=== PATIENT | female | born 1940 | race Caucasian/White ===

== ENCOUNTER 2021-03-26 13:57 | Inpatient (IN) | payer MEDICAID ==
[~2021-03-26] VITALS: Ht 160 cm; Wt 87.2 kg
[2021-03-26 15:29] LABS: BASOPHILS % 0.8 % (0.0-2.0); EOSINOPHILS % 0.5 % (0.0-5.0); HEMATOCRIT. 36.6 % (36.0-48.0); HEMOGLOBIN. 11.8 g/dL (12.0-16.0); LYMPHOCYTES % 22.2 % (20.0-50.0); MEAN CORPUSCULAR HEMOGLOBIN 28.1 pg (28.0-32.0); MEAN CORPUSCULAR VOLUME 87.2 fL (81.0-99.0); MEAN PLATELET VOLUME 8.1 fl (7.4-10.4); MONOCYTES % 9.6 % (2.0-8.0); NEUTROPHILS % 66.9 % (40.0-76.0); PLATELET 262 x1000/uL (130-400); RED CELL DISTRIBUTION WIDTH 14.4 % (11.6-14.6)
[2021-03-26 15:34] LABS: CHLORIDE 107 mEq/L (98-107)
[2021-03-26] MEDS ORDERED: SODIUM CHLORIDE 0.9% 1000ML BAG (SEPSIS BOLUS) IV ONE (16:15)
[2021-03-26] MEDS ORDERED: CEFTRIAXONE 1 G PREMIX 50 ML IV ONE (16:15)
[2021-03-26] MEDS ORDERED: AZITHROMYCIN 500MG/250ML 250 ML IV ONE (16:15)
[2021-03-26] MEDS ORDERED: DEXAMETHASONE 10 MG/ML VIAL IV ONE (16:15)
[2021-03-26 16:30] LABS: CHLORIDE 106 mEq/L (98-107)
[2021-03-26] MEDS ORDERED: ASPIRIN 81MG TABLET PO ONE (16:45)
[2021-03-26] MEDS ORDERED: HYDROCODONE/ACETAMINOPHEN 5/325MG TABLET PO PRN (17:30)
[2021-03-26] MEDS ORDERED: MAGNESIUM/ALUMINUM HYDROXIDE/SIMETHICONE 30ML UDC PO PRN (17:30)
[2021-03-26] MEDS ORDERED: GUAIFENESIN 200MG/10ML SUGAR FREE UDC PO PRN (17:30)
[2021-03-26] MEDS ORDERED: CEFTRIAXONE 1 G PREMIX 50 ML IV SCH (17:30)
[2021-03-26] MEDS ORDERED: DOCUSATE SODIUM 100MG CAPSULE PO PRN (17:30)
[2021-03-26] MEDS ORDERED: CLONIDINE 0.1MG TABLET PO PRN (17:30)
[2021-03-26] MEDS ORDERED: ACETAMINOPHEN 325MG TABLET PO PRN (17:30)
[2021-03-26] MEDS ORDERED: ONDANSETRON HCL 4MG/2ML INJ IV PRN (17:30)
[2021-03-26] MEDS ORDERED: NALOXONE HCL 0.4MG/ML VIAL IV PRN (17:45)
[2021-03-26] MEDS: ENOXAPARIN 40MG/0.4ML SYR SUBCUT SCH (18:00)
[2021-03-27] MEDS ORDERED: CEFTRIAXONE 1,000 MG in DEXTROSE 5% WATER 50 ML IV SCH (08:00)
[2021-03-27] MEDS ORDERED: AZITHROMYCIN 500 MG in DEXT 5% WATER 250 ML IV SCH (09:00)
[2021-03-27 09:24] LABS: BG BASE EXCESS 2.9 mmol/L (-2.0-2.0); BG CARBOXYHEMOGLOBIN 0.1 % (0.5-1.5); BG FRACTION INSPIRED OXYGEN 36; BG HCO3 ACT 29.5 mmol/L (22.0-26.0); BG METHEMOGLOBIN 0.2 % (0.0-1.5); BG OXYHEMOGLOBIN 96.7 % (94.0-97.0); BG PCO2 54.8 mmHg (35.0-45.0); BG PH 7.349 (7.350-7.450); BG PO2 93.1 mmHg (75.0-100.0); BG SAMPLE SITE RIGHT RADIAL; BG TOTAL HEMOGLOBIN 11.6 g/dL (12.0-18.0); BG VENT MODE NASAL CANNULA
[2021-03-27] MEDS ORDERED: AZITHROMYCIN 500MG/250ML 250 ML IV SCH (10:00)
[2021-03-27 10:31] LABS: BASOPHILS % 0.7 % (0.0-2.0); HEMOGLOBIN. 11.6 g/dL (12.0-16.0); LYMPHOCYTES % 18.2 % (20.0-50.0); MEAN CORPUSCULAR HEMOGLOBIN 28.5 pg (28.0-32.0); MEAN CORPUSCULAR VOLUME 88.2 fL (81.0-99.0); MEAN PLATELET VOLUME 8.2 fl (7.4-10.4); MONOCYTES % 9.1 % (2.0-8.0); PLATELET 258 x1000/uL (130-400); RED BLOOD CELL COUNT 4.08 mill/uL (4.2-5.4); RED CELL DISTRIBUTION WIDTH 14.3 % (11.6-14.6)
[2021-03-27 10:36] LABS: CHLORIDE 109 mEq/L (98-107)
[2021-03-27 10:42] LABS: LDL CHOLESTEROL 111 mg/dL (5-100)
[2021-03-27 10:44] LABS: HDL CHOLESTEROL 55 mg/dL (40-59)
[2021-03-27] MEDS ORDERED: CEFTRIAXONE 1 G PREMIX 50 ML IV SCH (11:00)
[2021-03-27] MEDS: DEXAMETHASONE 10 MG/ML VIAL IV SCH (13:16)
[2021-03-27 16:00] VITALS: BP 136/63
[2021-03-27] MEDS ORDERED: LOSA50TA41 MT (17:40)
[2021-03-27] MEDS ORDERED: METO-539 MT (17:40)
[2021-03-27] MEDS ORDERED: METF-414 MT (17:40)
[2021-03-27] MEDS: ENOXAPARIN 40MG/0.4ML SYR SUBCUT SCH (18:03)
[2021-03-27 20:00] VITALS: BP 120/65
[2021-03-28] VITALS: BP 125/59
[2021-03-28 04:00] VITALS: BP 127/62
[2021-03-28 08:00] VITALS: BP 149/78
[2021-03-28] MEDS: DEXAMETHASONE 10 MG/ML VIAL IV SCH (08:26)
[2021-03-28] MEDS: AZITHROMYCIN 500MG in DEXTROSE 5% WATER 250ML IV SCH (08:26)
[2021-03-28] MEDS: CEFTRIAXONE 1,000 MG in DEXTROSE 5% WATER 50 ML IV SCH (08:26)
[2021-03-28 12:00] VITALS: BP 133/63
[2021-03-28 16:00] VITALS: BP 141/76
[2021-03-28] MEDS: ENOXAPARIN 40MG/0.4ML SYR SUBCUT SCH (17:49)
[2021-03-28 22:00] VITALS: BP 138/71
[2021-03-29 06:00] VITALS: BP 147/86
[2021-03-29 08:00] VITALS: BP 150/79
[2021-03-29] MEDS: DEXAMETHASONE 10 MG/ML VIAL IV SCH (08:42)
[2021-03-29] MEDS: CEFTRIAXONE 1,000 MG in DEXTROSE 5% WATER 50 ML IV SCH (08:42)
[2021-03-29] MEDS: AZITHROMYCIN 500MG in DEXTROSE 5% WATER 250ML IV SCH (10:01)
[2021-03-29 12:00] VITALS: BP 140/57
[2021-03-29 16:00] VITALS: BP 137/72
[2021-03-29] MEDS: ENOXAPARIN 40MG/0.4ML SYR SUBCUT SCH (18:16)
[2021-03-29 20:00] VITALS: BP 119/59
[2021-03-30 06:00] VITALS: BP_SYST 126; BP_SYST 134; BP_DIAS 64; BP_DIAS 67
[2021-03-30 08:00] VITALS: BP 126/64
[2021-03-30] MEDS: DEXAMETHASONE 10 MG/ML VIAL IV SCH (08:07)
[2021-03-30] MEDS: CEFTRIAXONE 1,000 MG in DEXTROSE 5% WATER 50 ML IV SCH (08:07)
[2021-03-30] MEDS: AZITHROMYCIN 500MG in DEXTROSE 5% WATER 250ML IV SCH (10:20)
[2021-03-30 12:00] VITALS: BP 147/82
[2021-03-30] MEDS: BLOOD SUGAR DIAGNOSTIC STRIP TEST SCH ×3 (13:00→21:00)
[2021-03-30] MEDS ORDERED: DEXTROSE 50% WATER 50ML SYRINGE IV PRN (13:00)
[2021-03-30] MEDS: INSULIN LISPRO 100 UNITS/ML SUBCUT SCH ×3 (13:30→21:31)
[2021-03-30 16:00] VITALS: BP 167/78
[2021-03-30] MEDS: ENOXAPARIN 40MG/0.4ML SYR SUBCUT SCH (17:03)
[2021-03-30 18:00] VITALS: BP 155/72
[2021-03-30 20:00] VITALS: BP 131/82
[2021-03-31 04:00] VITALS: BP 142/67
[2021-03-31] MEDS: BLOOD SUGAR DIAGNOSTIC STRIP TEST SCH ×4 (06:13→20:39)
[2021-03-31] MEDS: INSULIN LISPRO 100 UNITS/ML SUBCUT SCH ×4 (06:21→20:39)
[2021-03-31 08:00] VITALS: BP 149/82
[2021-03-31] MEDS: CEFTRIAXONE 1,000 MG in DEXTROSE 5% WATER 50 ML IV SCH (08:13)
[2021-03-31] MEDS: DEXAMETHASONE 10 MG/ML VIAL IV SCH (08:15)
[2021-03-31 12:00] VITALS: BP 153/72
[2021-03-31 16:00] VITALS: BP 138/87
[2021-03-31] MEDS: ENOXAPARIN 40MG/0.4ML SYR SUBCUT SCH (17:11)
[2021-03-31 20:00] VITALS: BP 160/80
[2021-04-01] VITALS: BP 146/82
[2021-04-01 04:00] VITALS: BP 140/67
[2021-04-01] MEDS: BLOOD SUGAR DIAGNOSTIC STRIP TEST SCH ×3 (05:41→16:53)
[2021-04-01] MEDS: INSULIN LISPRO 100 UNITS/ML SUBCUT SCH ×4 (05:41→20:58)
[2021-04-01 08:00] VITALS: BP 144/73
[2021-04-01] MEDS: DEXAMETHASONE 10 MG/ML VIAL IV SCH (09:16)
[2021-04-01 12:00] VITALS: BP 151/82
[2021-04-01 16:00] VITALS: BP 153/77
[2021-04-01] MEDS: ENOXAPARIN 40MG/0.4ML SYR SUBCUT SCH (17:55)
[2021-04-01 20:00] VITALS: BP 159/86
[2021-04-02] VITALS: BP 160/88
[2021-04-02 04:00] VITALS: BP 170/88
[2021-04-02] MEDS: BLOOD SUGAR DIAGNOSTIC STRIP TEST SCH (05:40)
[2021-04-02] MEDS: INSULIN LISPRO 100 UNITS/ML SUBCUT SCH (05:48)
[2021-04-02 08:00] VITALS: BP 145/79
[2021-04-02] MEDS: DEXAMETHASONE 10 MG/ML VIAL IV SCH (08:21)
== END 2021-04-02 12:25 | disposition home or self-care (01) | DRG 720 ==
LOC: ER 13:57 → MICUSO 16:40 → 7EST 03-27 16:07 → 8WST 04-02 01:07
PROVIDERS: ADMIT Hospitalist; ATTEND Hospitalist
DX: A41.89 Other specified sepsis (principal); J96.01 Acute respiratory failure with hypoxia; J12.82 Pneumonia due to coronavirus disease 2019; E44.1 Mild protein-calorie malnutrition; E11.9 Type 2 diabetes mellitus without complications; E78.00 Pure hypercholesterolemia, unspecified; E78.5 Hyperlipidemia, unspecified; I10 Essential (primary) hypertension; U07.1 COVID-19; E66.9 Obesity, unspecified; Z68.34 Body mass index [BMI] 34.0-34.9, adult
CPT/HCPCS: 36415; 36600; 71045; 80053; 80061; 82375; 82728; 82805; 82962; 83036; 83605; 83615; 83880; 84145; 84484; 85025; 85379; 86140; 87426; 93005; 93306; 93970; 99285; J0456; J0696; J1100; J1650; J1815; J7030; J7040; J7060

== ENCOUNTER 2022-05-12 14:49 | Inpatient (IN) | payer MEDICAID ==
[~2022-05-12] VITALS: Ht 167.6 cm; Wt 87.1 kg
[~2022-05-12 14:49] MED LIST: ATOR40TA70 MT; FURO40TA5 MT; GABA-532 MT; GLIP10TA10 MT; LOSA50TA41 MT; METF-414 MT; TOPUD PO
[2022-05-12] MEDS ORDERED: KETOROLAC 30MG/ML VIAL IV STA (15:31)
[2022-05-12] MEDS ORDERED: KETOROLAC 30MG/ML VIAL IV NR (15:31)
[2022-05-12 20:58] LABS: BASOPHILS % 0.3 % (0.0-2.0); EOSINOPHILS % 0.8 % (0.0-5.0); HEMATOCRIT. 36.6 % (36.0-48.0); HEMOGLOBIN. 11.4 g/dL (12.0-16.0); LYMPHOCYTES % 14.8 % (20.0-50.0); MEAN CORPUSCULAR HEMOGLOBIN 27.7 pg (28.0-32.0); MEAN CORPUSCULAR VOLUME 88.7 fL (81.0-99.0); MEAN PLATELET VOLUME 8.2 fl (7.4-10.4); NEUTROPHILS % 78.1 % (40.0-76.0); PLATELET 279 x1000/uL (130-400); RED BLOOD CELL COUNT 4.13 mill/uL (4.2-5.4); RED CELL DISTRIBUTION WIDTH 14.4 % (11.6-14.6)
[2022-05-12 21:06] LABS: CHLORIDE 101 mEq/L (98-107)
[2022-05-12 21:10] LABS: PROTHROMBIN TIME 10.9 sec (9.6-11.0)
[2022-05-12 23:05] VITALS: BP 126/63
[2022-05-12] MEDS ORDERED: NALOXONE HCL 0.4MG/ML VIAL IV PRN (23:45)
[2022-05-12] MEDS ORDERED: BLOOD SUGAR DIAGNOSTIC STRIP TEST SCH (23:57)
[2022-05-12] MEDS ORDERED: INSULIN LISPRO 100 UNITS/ML SUBCUT SCH (23:57)
[2022-05-13] VITALS: BP 126/63
[2022-05-13] MEDS ORDERED: DEXTROSE 50% WATER 50ML SYRINGE IV PRN
[2022-05-13 04:00] VITALS: BP 141/79
[2022-05-13 06:21] LABS: BASOPHILS % 0.6 % (0.0-2.0); EOSINOPHILS % 1.5 % (0.0-5.0); HEMATOCRIT. 32.2 % (36.0-48.0); HEMOGLOBIN. 10.5 g/dL (12.0-16.0); LYMPHOCYTES % 23.2 % (20.0-50.0); MEAN CORPUSCULAR HEMOGLOBIN 28.4 pg (28.0-32.0); MEAN CORPUSCULAR VOLUME 87.3 fL (81.0-99.0); MEAN PLATELET VOLUME 8.7 fl (7.4-10.4); MONOCYTES % 9.2 % (2.0-8.0); NEUTROPHILS % 65.5 % (40.0-76.0); PLATELET 255 x1000/uL (130-400); RED BLOOD CELL COUNT 3.69 mill/uL (4.2-5.4)
[2022-05-13 08:00] VITALS: BP 125/65
[2022-05-13] MEDS: INSULIN LISPRO 100 UNITS/ML SUBCUT SCH ×4 (08:10→21:00)
[2022-05-13] MEDS ORDERED: BLOOD SUGAR DIAGNOSTIC STRIP TEST SCH (08:10)
[2022-05-13] MEDS: BLOOD SUGAR DIAGNOSTIC STRIP TEST SCH ×4 (08:16→21:00)
[2022-05-13 12:00] VITALS: BP 125/67
[2022-05-13] MEDS: MORPHINE SULFATE 2 MG/ML CPJ (NOT FOR IM USE) IV PRN (13:29)
[2022-05-13 16:00] VITALS: BP 134/69
[2022-05-13] MEDS ORDERED: VANCOMYCIN HCL 1 GM/VIAL ONE (17:17)
[2022-05-13] MEDS ORDERED: LIDOCAINE HCL/EPINEPHRINE 1%-EPI 1:100,000 20 ML VIAL ONE (17:17)
[2022-05-13] MEDS ORDERED: ONDANSETRON HCL 4MG/2ML INJ IV PRN ×2 (17:30→19:30)
[2022-05-13] MEDS ORDERED: MIDAZOLAM HCL 2 MG/2 ML VIAL ONE (17:46)
[2022-05-13] MEDS ORDERED: FENTANYL CITRATE/PF 50MCG/ML 2ML VIAL ONE (17:46)
[2022-05-13] MEDS ORDERED: PROPOFOL 200MG/20ML VIAL IV ONE (17:46)
[2022-05-13] MEDS ORDERED: KETOROLAC 30MG/ML VIAL ONE (18:31)
[2022-05-13] MEDS ORDERED: CEFAZOLIN SODIUM 1000MG/VIAL ONE (18:31)
[2022-05-13] MEDS ORDERED: ONDANSETRON HCL 4MG/2ML INJ ONE (18:31)
[2022-05-13] MEDS ORDERED: METOCLOPRAMIDE HCL 10MG/2ML VIAL ONE (18:31)
[2022-05-13] MEDS ORDERED: DEXAMETHASONE 4MG/ML 1ML VIAL ONE (18:31)
[2022-05-13] MEDS ORDERED: EPHEDRINE SULFATE 50MG/ML VIAL ONE (18:44)
[2022-05-13] MEDS ORDERED: MEPERIDINE HCL/PF 25MG/ML CPJ IV PRN (19:30)
[2022-05-13] MEDS ORDERED: HYDROMORPHONE HCL/PF 2MG/ML CPJ IV PRN (19:30)
[2022-05-13] MEDS ORDERED: SODIUM CHLORIDE 0.9% 1,000 ML IV SCH (19:30)
[2022-05-13] MEDS ORDERED: FENTANYL CITRATE/PF 50MCG/ML 2ML VIAL IV PRN (19:30)
[2022-05-13] MEDS: CEFAZOLIN 2,000 MG in DEXT 5% WATER 100 ML IV SCH (20:00)
[2022-05-13 21:30] VITALS: BP 129/63
[2022-05-14] VITALS: BP 148/63
[2022-05-14 04:00] VITALS: BP 148/77
[2022-05-14] MEDS: CEFAZOLIN 2,000 MG in DEXT 5% WATER 100 ML IV SCH ×3 (04:00→20:07)
[2022-05-14] MEDS: BLOOD SUGAR DIAGNOSTIC STRIP TEST SCH ×4 (06:24→22:19)
[2022-05-14 07:55] LABS: BASOPHILS % 0.1 % (0.0-2.0); HEMATOCRIT. 29.1 % (36.0-48.0); HEMOGLOBIN. 9.4 g/dL (12.0-16.0); LYMPHOCYTES % 8.6 % (20.0-50.0); MEAN CORPUSCULAR HEMOGLOBIN 28.3 pg (28.0-32.0); MEAN CORPUSCULAR VOLUME 87.6 fL (81.0-99.0); MEAN PLATELET VOLUME 8.6 fl (7.4-10.4); MONOCYTES % 6.4 % (2.0-8.0); NEUTROPHILS % 84.9 % (40.0-76.0); PLATELET 264 x1000/uL (130-400); RED BLOOD CELL COUNT 3.33 mill/uL (4.2-5.4); RED CELL DISTRIBUTION WIDTH 14.3 % (11.6-14.6)
[2022-05-14 08:00] VITALS: BP 145/74
[2022-05-14] MEDS: INSULIN LISPRO 100 UNITS/ML SUBCUT SCH ×5 (08:10→22:20)
[2022-05-14 08:30] LABS: CHLORIDE 104 mEq/L (98-107)
[2022-05-14 12:00] VITALS: BP 113/70
[2022-05-14] MEDS: HYDROCODONE/ACETAMINOPHEN 10/325MG TABLET PO PRN ×2 (12:36→18:42)
[2022-05-14 16:00] VITALS: BP 120/79
[2022-05-14 20:00] VITALS: BP 118/55
[2022-05-14] MEDS: ENOXAPARIN 40MG/0.4ML SYR SUBCUT SCH (20:08)
[2022-05-15 00:49] VITALS: BP 122/50
[2022-05-15] MEDS: MORPHINE SULFATE 2 MG/ML CPJ (NOT FOR IM USE) IV PRN ×2 (00:49→17:55)
[2022-05-15] MEDS: HYDROCODONE/ACETAMINOPHEN 10/325MG TABLET PO PRN ×3 (02:57→22:18)
[2022-05-15 04:00] VITALS: BP 136/63
[2022-05-15 06:17] LABS: BASOPHILS % 0.5 % (0.0-2.0); EOSINOPHILS % 1.7 % (0.0-5.0); HEMATOCRIT. 27.6 % (36.0-48.0); HEMOGLOBIN. 8.9 g/dL (12.0-16.0); MEAN CORPUSCULAR HEMOGLOBIN 28.3 pg (28.0-32.0); MEAN CORPUSCULAR VOLUME 87.3 fL (81.0-99.0); MEAN PLATELET VOLUME 8.7 fl (7.4-10.4); MONOCYTES % 9.1 % (2.0-8.0); NEUTROPHILS % 69.7 % (40.0-76.0); PLATELET 246 x1000/uL (130-400); RED BLOOD CELL COUNT 3.16 mill/uL (4.2-5.4); RED CELL DISTRIBUTION WIDTH 14.4 % (11.6-14.6)
[2022-05-15] MEDS: BLOOD SUGAR DIAGNOSTIC STRIP TEST SCH ×4 (06:35→20:02)
[2022-05-15 07:04] LABS: CHLORIDE 107 mEq/L (98-107)
[2022-05-15 08:00] VITALS: BP 138/71
[2022-05-15] MEDS: INSULIN LISPRO 100 UNITS/ML SUBCUT SCH ×4 (08:10→20:03)
[2022-05-15 12:00] VITALS: BP 165/74
[2022-05-15 16:00] VITALS: BP 160/78
[2022-05-15] MEDS ORDERED: ASPIRIN 81MG TABLET PO NR (18:00)
[2022-05-15] MEDS ORDERED: IPRATROPIUM/ALBUTEROL 0.5-3(2.5)MG/3ML NEB HHN PRN (19:30)
[2022-05-15] MEDS ORDERED: ALBUTEROL (0.083%) 2.5MG/3ML NEB HHN PRN (19:30)
[2022-05-15] MEDS ORDERED: IPRATROPIUM BROMIDE (0.02%) 0.5MG/2.5ML NEB HHN PRN (19:30)
[2022-05-15 20:00] VITALS: BP 156/77
[2022-05-15] MEDS: FUROSEMIDE 40MG/4ML VIAL IVP SCH (20:30)
[2022-05-15] MEDS: ENOXAPARIN 40MG/0.4ML SYR SUBCUT SCH (20:30)
[2022-05-16] VITALS: BP 133/66
[2022-05-16] MEDS ORDERED: LORAZEPAM 2MG/ML CPJ IV NR (00:45)
[2022-05-16 04:00] VITALS: BP 138/72
[2022-05-16] MEDS: BLOOD SUGAR DIAGNOSTIC STRIP TEST SCH ×4 (06:41→20:37)
[2022-05-16 07:39] LABS: BASOPHILS % 0.5 % (0.0-2.0); EOSINOPHILS % 1.8 % (0.0-5.0); HEMATOCRIT. 29.7 % (36.0-48.0); HEMOGLOBIN. 9.5 g/dL (12.0-16.0); LYMPHOCYTES % 18.8 % (20.0-50.0); MEAN CORPUSCULAR VOLUME 87.4 fL (81.0-99.0); MEAN PLATELET VOLUME 8.5 fl (7.4-10.4); MONOCYTES % 9.5 % (2.0-8.0); NEUTROPHILS % 69.4 % (40.0-76.0); PLATELET 255 x1000/uL (130-400); RED BLOOD CELL COUNT 3.39 mill/uL (4.2-5.4); RED CELL DISTRIBUTION WIDTH 14.3 % (11.6-14.6)
[2022-05-16 07:48] LABS: CHLORIDE 101 mEq/L (98-107)
[2022-05-16] MEDS: INSULIN LISPRO 100 UNITS/ML SUBCUT SCH ×4 (07:57→20:37)
[2022-05-16] MEDS ORDERED: IRON SUCROSE COMPLEX 100 MG/5 ML ML IV NR (08:00)
[2022-05-16 08:22] VITALS: BP 137/74
[2022-05-16] MEDS: DOCUSATE SODIUM 250MG CAPSULE PO SCH (09:19)
[2022-05-16] MEDS: ENOXAPARIN 40MG/0.4ML SYR SUBCUT SCH (09:20)
[2022-05-16] MEDS: FUROSEMIDE 40MG/4ML VIAL IVP SCH (09:33)
[2022-05-16] MEDS ORDERED: IOHEXOL-350 100 ML BOTTLE ONE (11:10)
[2022-05-16 11:43] VITALS: BP 139/60
[2022-05-16 15:41] VITALS: BP 138/80
[2022-05-16 20:00] VITALS: BP 135/81
[2022-05-16] MEDS: HYDROCODONE/ACETAMINOPHEN 10/325MG TABLET PO PRN (20:25)
[2022-05-16] MEDS ORDERED: POTASSIUM CHLORIDE 20MEQ TABLET SR PO NR (20:45)
[2022-05-16 22:49] LABS: BG BASE EXCESS 4.8 mmol/L (-2.0-2.0); BG CARBOXYHEMOGLOBIN 0.4 % (0.5-1.5); BG DEOXYHEMOGLOBIN 8.9 % (0.0-5.0); BG HCO3 ACT 29.6 mmol/L (22.0-26.0); BG METHEMOGLOBIN 0.3 % (0.0-1.5); BG OXYHEMOGLOBIN 90.4 % (94.0-97.0); BG PCO2 44.9 mmHg (35.0-45.0); BG PH 7.437 (7.350-7.450); BG PO2 59.9 mmHg (75.0-100.0); BG SAMPLE SITE RIGHT RADIAL; BG TOTAL HEMOGLOBIN 11.1 g/dL (12.0-18.0); BG VENT MODE NASAL CANNULA
[2022-05-17] VITALS: BP 128/66
[2022-05-17] MEDS ORDERED: LORAZEPAM 2MG/ML CPJ IV NR (00:30)
[2022-05-17 04:00] VITALS: BP 110/70
[2022-05-17] MEDS: BLOOD SUGAR DIAGNOSTIC STRIP TEST SCH ×4 (06:40→20:42)
[2022-05-17] MEDS: INSULIN LISPRO 100 UNITS/ML SUBCUT SCH ×4 (07:46→20:40)
[2022-05-17 08:00] VITALS: BP 134/67
[2022-05-17] MEDS: FUROSEMIDE 40MG/4ML VIAL IVP SCH (09:22)
[2022-05-17] MEDS: IRON SUCROSE COMPLEX 100 MG/5 ML ML IV SCH (09:22)
[2022-05-17] MEDS: DOCUSATE SODIUM 250MG CAPSULE PO SCH (09:22)
[2022-05-17 12:00] VITALS: BP 126/67
[2022-05-17 16:00] VITALS: BP 138/67
[2022-05-17] MEDS: ENOXAPARIN 40MG/0.4ML SYR SUBCUT SCH (17:56)
[2022-05-17 19:09] LABS: CLARITY URINE CLOUDY (CLEAR); COLOR URINE YELLOW (YELLOW); KETONES URINE NEGATIVE (NEGATIVE); LEUKOCYTE ESTERASE URINE 3+ (NEGATIVE); NITRITE URINE NEGATIVE (NEGATIVE); OCCULT BLOOD URINE TRACE (NEGATIVE); PH URINE 6.5 (4.5-8.0); PROTEIN URINE NEGATIVE (NEGATIVE); SPECIFIC GRAVITY URINE 1.013 (1.005-1.030); UROBILINOGEN URINE 0.2 E.U./dL (0.2-1.0)
[2022-05-17] MEDS: HYDROCODONE/ACETAMINOPHEN 10/325MG TABLET PO PRN (20:42)
[2022-05-17 21:47] LABS: BASOPHILS % 0.4 % (0.0-2.0); EOSINOPHILS % 2.1 % (0.0-5.0); HEMATOCRIT. 29.3 % (36.0-48.0); HEMOGLOBIN. 9.5 g/dL (12.0-16.0); LYMPHOCYTES % 16.6 % (20.0-50.0); MEAN CORPUSCULAR HEMOGLOBIN 28.1 pg (28.0-32.0); MEAN CORPUSCULAR VOLUME 86.2 fL (81.0-99.0); MEAN PLATELET VOLUME 8.7 fl (7.4-10.4); MONOCYTES % 10.6 % (2.0-8.0); NEUTROPHILS % 70.3 % (40.0-76.0); PLATELET 297 x1000/uL (130-400); RED BLOOD CELL COUNT 3.39 mill/uL (4.2-5.4); RED CELL DISTRIBUTION WIDTH 14.1 % (11.6-14.6)
[2022-05-17 21:59] LABS: CHLORIDE 103 mEq/L (98-107)
[2022-05-18] VITALS: BP 153/73
[2022-05-18 04:00] VITALS: BP 136/61
[2022-05-18] MEDS ORDERED: HYDROCODONE/ACETAMINOPHEN 10/325MG TABLET PO NR (04:30)
[2022-05-18 07:39] LABS: TOTAL IRON BINDING CAPACITY 235 ug/dL (250-450)
[2022-05-18 08:00] VITALS: BP 121/68
[2022-05-18] MEDS: BLOOD SUGAR DIAGNOSTIC STRIP TEST SCH ×4 (08:02→21:00)
[2022-05-18] MEDS: FUROSEMIDE 40MG/4ML VIAL IVP SCH (08:09)
[2022-05-18] MEDS: DOCUSATE SODIUM 250MG CAPSULE PO SCH (08:09)
[2022-05-18] MEDS: IRON SUCROSE COMPLEX 100 MG/5 ML ML IV SCH (08:09)
[2022-05-18] MEDS: PANTOPRAZOLE SODIUM 40 MG/VIAL IV SCH (08:09)
[2022-05-18] MEDS: INSULIN LISPRO 100 UNITS/ML SUBCUT SCH ×4 (08:19→22:07)
[2022-05-18] MEDS: ALBUTEROL (0.083%) 2.5MG/3ML NEB HHN SCH ×3 (08:52→20:52)
[2022-05-18] MEDS: IPRATROPIUM BROMIDE (0.02%) 0.5MG/2.5ML NEB HHN SCH ×3 (08:52→20:51)
[2022-05-18 10:23] LABS: FERRITIN 395 ng/mL (10-291)
[2022-05-18] MEDS ORDERED: BISACODYL 10MG SUPP PR PRN (10:30)
[2022-05-18 12:00] VITALS: BP 125/68
[2022-05-18] MEDS: LACTULOSE 20G/30ML UDC PO SCH ×3 (12:08→22:02)
[2022-05-18] MEDS: HYDROCODONE/ACETAMINOPHEN 10/325MG TABLET PO PRN (12:09)
[2022-05-18 12:16] LABS: FOLIC ACID (FOLATE) SERUM >20 ng/mL ng/mL (>5.38); VITAMIN B12 SERUM 249 pg/mL (211-911)
[2022-05-18] MEDS ORDERED: CEFTRIAXONE 1 G PREMIX 50 ML IV SCH (13:00)
[2022-05-18] MEDS: CEFTRIAXONE 1,000 MG in DEXTROSE 5% WATER 50 ML IV SCH (15:03)
[2022-05-18 16:00] VITALS: BP 135/62
[2022-05-18] MEDS: ENOXAPARIN 40MG/0.4ML SYR SUBCUT SCH (17:25)
[2022-05-18 20:00] VITALS: BP 137/70
[2022-05-18 21:00] LABS: BASOPHILS % 0.4 % (0.0-2.0); EOSINOPHILS % 1.6 % (0.0-5.0); HEMATOCRIT. 28.5 % (36.0-48.0); HEMOGLOBIN. 9.2 g/dL (12.0-16.0); LYMPHOCYTES % 17.8 % (20.0-50.0); MEAN CORPUSCULAR HEMOGLOBIN 28.1 pg (28.0-32.0); MEAN CORPUSCULAR VOLUME 86.7 fL (81.0-99.0); MEAN PLATELET VOLUME 8.6 fl (7.4-10.4); NEUTROPHILS % 69.2 % (40.0-76.0); PLATELET 287 x1000/uL (130-400); RED BLOOD CELL COUNT 3.28 mill/uL (4.2-5.4); RED CELL DISTRIBUTION WIDTH 14.3 % (11.6-14.6)
[2022-05-18] MEDS: GUAIFENESIN 600MG ER TABLET PO SCH (22:02)
[2022-05-19] VITALS: BP 101/51
[2022-05-19] MEDS: ALBUTEROL (0.083%) 2.5MG/3ML NEB HHN SCH ×4 (01:15→20:30)
[2022-05-19] MEDS: IPRATROPIUM BROMIDE (0.02%) 0.5MG/2.5ML NEB HHN SCH ×4 (01:15→20:29)
[2022-05-19 04:00] VITALS: BP 133/70
[2022-05-19] MEDS: BLOOD SUGAR DIAGNOSTIC STRIP TEST SCH ×4 (07:21→20:25)
[2022-05-19 08:00] VITALS: BP 91/48
[2022-05-19] MEDS: LACTULOSE 20G/30ML UDC PO SCH (09:59)
[2022-05-19] MEDS: GUAIFENESIN 600MG ER TABLET PO SCH ×2 (09:59→21:02)
[2022-05-19] MEDS: PANTOPRAZOLE SODIUM 40 MG/VIAL IV SCH (09:59)
[2022-05-19] MEDS: FUROSEMIDE 40MG/4ML VIAL IVP SCH (09:59)
[2022-05-19] MEDS: INSULIN LISPRO 100 UNITS/ML SUBCUT SCH ×4 (10:00→21:10)
[2022-05-19] MEDS: DOCUSATE SODIUM 250MG CAPSULE PO SCH (10:03)
[2022-05-19] MEDS: HYDROCODONE/ACETAMINOPHEN 10/325MG TABLET PO PRN ×2 (11:18→21:03)
[2022-05-19 12:00] VITALS: BP 122/59
[2022-05-19] MEDS: CEFTRIAXONE 1,000 MG in DEXTROSE 5% WATER 50 ML IV SCH (13:33)
[2022-05-19 16:00] VITALS: BP 143/75
[2022-05-19] MEDS ORDERED: LEVOFLOXACIN 500MG PREMIX 100 ML IV NR (16:00)
[2022-05-19] MEDS: ENOXAPARIN 40MG/0.4ML SYR SUBCUT SCH (18:15)
[2022-05-19 20:00] VITALS: BP 124/66
[2022-05-19] MEDS: INSULIN GLARGINE 100 UNITS/ML SUBCUT SCH (22:47)
[2022-05-20] VITALS: BP 113/49
[2022-05-20] MEDS: IPRATROPIUM BROMIDE (0.02%) 0.5MG/2.5ML NEB HHN SCH ×4 (01:50→20:45)
[2022-05-20] MEDS: ALBUTEROL (0.083%) 2.5MG/3ML NEB HHN SCH ×4 (01:50→20:45)
[2022-05-20 04:00] VITALS: BP 115/47
[2022-05-20] MEDS: HYDROCODONE/ACETAMINOPHEN 10/325MG TABLET PO PRN ×2 (05:19→17:42)
[2022-05-20] MEDS: BLOOD SUGAR DIAGNOSTIC STRIP TEST SCH ×4 (06:40→20:26)
[2022-05-20 07:43] LABS: BASOPHILS % 0.5 % (0.0-2.0); EOSINOPHILS % 1.6 % (0.0-5.0); HEMATOCRIT. 26.3 % (36.0-48.0); HEMOGLOBIN. 8.7 g/dL (12.0-16.0); LYMPHOCYTES % 15.4 % (20.0-50.0); MEAN CORPUSCULAR HEMOGLOBIN 28.7 pg (28.0-32.0); MEAN CORPUSCULAR VOLUME 86.4 fL (81.0-99.0); MEAN PLATELET VOLUME 8.6 fl (7.4-10.4); MONOCYTES % 9.4 % (2.0-8.0); NEUTROPHILS % 73.1 % (40.0-76.0); PLATELET 308 x1000/uL (130-400); RED BLOOD CELL COUNT 3.05 mill/uL (4.2-5.4); RED CELL DISTRIBUTION WIDTH 14.3 % (11.6-14.6)
[2022-05-20 08:00] VITALS: BP 107/45
[2022-05-20 08:30] LABS: CHLORIDE 100 mEq/L (98-107)
[2022-05-20] MEDS: INSULIN LISPRO 100 UNITS/ML SUBCUT SCH ×4 (09:45→21:11)
[2022-05-20] MEDS: INSULIN GLARGINE 100 UNITS/ML SUBCUT SCH ×2 (09:45→21:11)
[2022-05-20] MEDS: FUROSEMIDE 40MG/4ML VIAL IVP SCH (09:47)
[2022-05-20] MEDS: GUAIFENESIN 600MG ER TABLET PO SCH ×2 (09:47→21:10)
[2022-05-20] MEDS: PANTOPRAZOLE SODIUM 40 MG/VIAL IV SCH (09:47)
[2022-05-20] MEDS: POLYETHYLENE GLYCOL 3350 (17GM) 1 DOSE PACK PO SCH (09:48)
[2022-05-20] MEDS: DOCUSATE SODIUM 250MG CAPSULE PO SCH (09:52)
[2022-05-20 12:00] VITALS: BP 122/64
[2022-05-20 16:00] VITALS: BP 130/74
[2022-05-20] MEDS: LEVOFLOXACIN 250MG PREMIX 50 ML IV SCH (16:55)
[2022-05-20] MEDS: ENOXAPARIN 40MG/0.4ML SYR SUBCUT SCH (18:15)
[2022-05-20 20:00] VITALS: BP 127/60
[2022-05-21] VITALS: BP 117/55
[2022-05-21] MEDS: HYDROCODONE/ACETAMINOPHEN 10/325MG TABLET PO PRN ×2 (01:49→17:28)
[2022-05-21] MEDS: IPRATROPIUM BROMIDE (0.02%) 0.5MG/2.5ML NEB HHN SCH ×5 (02:11→21:28)
[2022-05-21] MEDS: ALBUTEROL (0.083%) 2.5MG/3ML NEB HHN SCH ×5 (02:12→21:28)
[2022-05-21 04:00] VITALS: BP 129/68
[2022-05-21] MEDS: ACETAMINOPHEN 325MG TABLET PO PRN (06:38)
[2022-05-21] MEDS: INSULIN LISPRO 100 UNITS/ML SUBCUT SCH ×3 (07:50→22:07)
[2022-05-21 08:00] VITALS: BP 125/61
[2022-05-21 08:35] LABS: BASOPHILS % 0.4 % (0.0-2.0); EOSINOPHILS % 2.1 % (0.0-5.0); HEMATOCRIT. 28.3 % (36.0-48.0); HEMOGLOBIN. 9.2 g/dL (12.0-16.0); LYMPHOCYTES % 17.1 % (20.0-50.0); MEAN CORPUSCULAR HEMOGLOBIN 28.3 pg (28.0-32.0); MEAN CORPUSCULAR VOLUME 87.4 fL (81.0-99.0); MEAN PLATELET VOLUME 8.6 fl (7.4-10.4); NEUTROPHILS % 70.4 % (40.0-76.0); PLATELET 338 x1000/uL (130-400); RED BLOOD CELL COUNT 3.24 mill/uL (4.2-5.4); RED CELL DISTRIBUTION WIDTH 14.8 % (11.6-14.6)
[2022-05-21 08:54] LABS: CHLORIDE 100 mEq/L (98-107)
[2022-05-21] MEDS: DOCUSATE SODIUM 250MG CAPSULE PO SCH (09:18)
[2022-05-21] MEDS: GUAIFENESIN 600MG ER TABLET PO SCH ×2 (09:18→21:58)
[2022-05-21] MEDS: POLYETHYLENE GLYCOL 3350 (17GM) 1 DOSE PACK PO SCH (09:18)
[2022-05-21] MEDS: FUROSEMIDE 40MG/4ML VIAL IVP SCH (09:44)
[2022-05-21] MEDS: FAMOTIDINE 20MG/2ML VIAL IV SCH (09:44)
[2022-05-21] MEDS: INSULIN GLARGINE 100 UNITS/ML SUBCUT SCH ×2 (10:48→22:07)
[2022-05-21 12:02] VITALS: BP 108/65
[2022-05-21 16:00] VITALS: BP 119/68
[2022-05-21] MEDS: LEVOFLOXACIN 250MG PREMIX 50 ML IV SCH (16:16)
[2022-05-21] MEDS ORDERED: NALOXONE HCL 0.4MG/ML VIAL IV PRN (17:00)
[2022-05-21] MEDS: ENOXAPARIN 40MG/0.4ML SYR SUBCUT SCH (18:14)
[2022-05-21 20:00] VITALS: BP 108/54
[2022-05-21] MEDS: BLOOD SUGAR DIAGNOSTIC STRIP TEST SCH (21:02)
[2022-05-22] VITALS: BP 104/43
[2022-05-22] MEDS: IPRATROPIUM BROMIDE (0.02%) 0.5MG/2.5ML NEB HHN SCH ×4 (02:48→21:47)
[2022-05-22] MEDS: ALBUTEROL (0.083%) 2.5MG/3ML NEB HHN SCH ×4 (02:48→21:47)
[2022-05-22 04:00] VITALS: BP 126/69
[2022-05-22 05:58] LABS: BASOPHILS % 0.4 % (0.0-2.0); EOSINOPHILS % 2.5 % (0.0-5.0); LYMPHOCYTES % 13.3 % (20.0-50.0); MEAN CORPUSCULAR HEMOGLOBIN 28.1 pg (28.0-32.0); MEAN CORPUSCULAR VOLUME 87.1 fL (81.0-99.0); MEAN PLATELET VOLUME 8.4 fl (7.4-10.4); MONOCYTES % 8.1 % (2.0-8.0); NEUTROPHILS % 75.7 % (40.0-76.0); PLATELET 340 x1000/uL (130-400); RED BLOOD CELL COUNT 3.22 mill/uL (4.2-5.4); RED CELL DISTRIBUTION WIDTH 14.8 % (11.6-14.6)
[2022-05-22 07:45] LABS: CHLORIDE 97 mEq/L (98-107)
[2022-05-22 08:00] VITALS: BP 136/82
[2022-05-22] MEDS ORDERED: NON FORMULARY PATIENT HOME MED XX SCH (09:00)
[2022-05-22] MEDS ORDERED: LIDOCAINE HCL 1% 10 MG/ML 10ML VIAL ONE (09:26)
[2022-05-22] MEDS: GUAIFENESIN 600MG ER TABLET PO SCH ×2 (10:22→21:25)
[2022-05-22] MEDS: POLYETHYLENE GLYCOL 3350 (17GM) 1 DOSE PACK PO SCH (10:22)
[2022-05-22] MEDS: DOCUSATE SODIUM 250MG CAPSULE PO SCH (10:22)
[2022-05-22] MEDS: FUROSEMIDE 40MG/4ML VIAL IVP SCH (10:23)
[2022-05-22] MEDS: FAMOTIDINE 20MG/2ML VIAL IV SCH (10:23)
[2022-05-22] MEDS: ANASTROZOLE 1 MG TABLET PO SCH (10:23)
[2022-05-22] MEDS ORDERED: POTASSIUM CHLORIDE 20MEQ/PACKET PO NR (10:30)
[2022-05-22] MEDS: INSULIN GLARGINE 100 UNITS/ML SUBCUT SCH ×2 (10:40→21:26)
[2022-05-22 12:00] VITALS: BP 126/74
[2022-05-22] MEDS: BLOOD SUGAR DIAGNOSTIC STRIP TEST SCH ×3 (12:20→21:25)
[2022-05-22] MEDS: INSULIN LISPRO 100 UNITS/ML SUBCUT SCH ×3 (12:50→21:27)
[2022-05-22] MEDS: ACETAMINOPHEN 325MG TABLET PO PRN (14:51)
[2022-05-22] MEDS: LEVOFLOXACIN 250MG PREMIX 50 ML IV SCH (15:57)
[2022-05-22 16:00] VITALS: BP 128/62
[2022-05-22] MEDS: ENOXAPARIN 40MG/0.4ML SYR SUBCUT SCH (18:01)
[2022-05-22 20:00] VITALS: BP 119/60
[2022-05-23] VITALS: BP 152/58
[2022-05-23 04:00] VITALS: BP 142/70
[2022-05-23] MEDS: HYDROCODONE/ACETAMINOPHEN 10/325MG TABLET PO PRN (06:02)
[2022-05-23 06:38] LABS: BASOPHILS % 0.7 % (0.0-2.0); EOSINOPHILS % 2.4 % (0.0-5.0); HEMATOCRIT. 26.9 % (36.0-48.0); HEMOGLOBIN. 8.9 g/dL (12.0-16.0); LYMPHOCYTES % 20.9 % (20.0-50.0); MEAN CORPUSCULAR HEMOGLOBIN 28.7 pg (28.0-32.0); MEAN CORPUSCULAR VOLUME 86.9 fL (81.0-99.0); MEAN PLATELET VOLUME 8.7 fl (7.4-10.4); MONOCYTES % 8.7 % (2.0-8.0); NEUTROPHILS % 67.3 % (40.0-76.0); PLATELET 323 x1000/uL (130-400); RED CELL DISTRIBUTION WIDTH 14.5 % (11.6-14.6)
[2022-05-23] MEDS: BLOOD SUGAR DIAGNOSTIC STRIP TEST SCH ×4 (07:38→21:59)
[2022-05-23] MEDS: INSULIN LISPRO 100 UNITS/ML SUBCUT SCH ×4 (07:50→22:03)
[2022-05-23 08:00] VITALS: BP 124/58
[2022-05-23] MEDS: DOCUSATE SODIUM 250MG CAPSULE PO SCH (09:38)
[2022-05-23] MEDS: FAMOTIDINE 20MG TABLET PO SCH (09:38)
[2022-05-23] MEDS: ANASTROZOLE 1 MG TABLET PO SCH (09:38)
[2022-05-23] MEDS: POLYETHYLENE GLYCOL 3350 (17GM) 1 DOSE PACK PO SCH (09:38)
[2022-05-23] MEDS: GUAIFENESIN 600MG ER TABLET PO SCH ×2 (09:38→22:00)
[2022-05-23] MEDS: FUROSEMIDE 40MG/4ML VIAL IVP SCH (09:38)
[2022-05-23] MEDS: INSULIN GLARGINE 100 UNITS/ML SUBCUT SCH ×2 (10:01→22:01)
[2022-05-23 12:00] VITALS: BP 105/59
[2022-05-23 13:15] LABS: BG BASE EXCESS 12.7 mmol/L (-2.0-2.0); BG CARBOXYHEMOGLOBIN 0.2 % (0.5-1.5); BG DEOXYHEMOGLOBIN 4.1 % (0.0-5.0); BG FRACTION INSPIRED OXYGEN 28; BG HCO3 ACT 37.8 mmol/L (22.0-26.0); BG METHEMOGLOBIN 0.3 % (0.0-1.5); BG OXYGEN SATURATION 95.9 % (92.0-98.5); BG OXYHEMOGLOBIN 95.4 % (94.0-97.0); BG PCO2 51.3 mmHg (35.0-45.0); BG PH 7.485 (7.350-7.450); BG PO2 79.2 mmHg (75.0-100.0); BG SAMPLE SITE RIGHT RADIAL; BG TOTAL HEMOGLOBIN 10.3 g/dL (12.0-18.0); BG VENT MODE NASAL CANNULA
[2022-05-23] MEDS: ACETAMINOPHEN 325MG TABLET PO PRN (13:36)
[2022-05-23 16:00] VITALS: BP 117/66
[2022-05-23] MEDS ORDERED: ACETAZOLAMIDE 250MG TABLET PO NR (18:00)
[2022-05-23] MEDS: LEVOFLOXACIN 250MG PREMIX 50 ML IV SCH (18:54)
[2022-05-23] MEDS: ENOXAPARIN 40MG/0.4ML SYR SUBCUT SCH (18:55)
[2022-05-23 20:00] VITALS: BP 132/84
[2022-05-24 06:36] LABS: BASOPHILS % 0.7 % (0.0-2.0); EOSINOPHILS % 2.3 % (0.0-5.0); HEMATOCRIT. 28.2 % (36.0-48.0); HEMOGLOBIN. 9.3 g/dL (12.0-16.0); LYMPHOCYTES % 19.7 % (20.0-50.0); MEAN CORPUSCULAR HEMOGLOBIN 28.6 pg (28.0-32.0); MEAN CORPUSCULAR VOLUME 87.1 fL (81.0-99.0); MEAN PLATELET VOLUME 8.7 fl (7.4-10.4); MONOCYTES % 8.8 % (2.0-8.0); NEUTROPHILS % 68.5 % (40.0-76.0); PLATELET 321 x1000/uL (130-400); RED BLOOD CELL COUNT 3.24 mill/uL (4.2-5.4); RED CELL DISTRIBUTION WIDTH 14.5 % (11.6-14.6)
[2022-05-24] MEDS: BLOOD SUGAR DIAGNOSTIC STRIP TEST SCH ×4 (06:41→20:33)
[2022-05-24] MEDS: INSULIN LISPRO 100 UNITS/ML SUBCUT SCH ×4 (07:42→21:00)
[2022-05-24 08:00] VITALS: BP 109/61
[2022-05-24] MEDS ORDERED: POTASSIUM CHLORIDE 20MEQ TABLET SR PO NR (08:45)
[2022-05-24] MEDS: POLYETHYLENE GLYCOL 3350 (17GM) 1 DOSE PACK PO SCH (09:00)
[2022-05-24] MEDS: GUAIFENESIN 600MG ER TABLET PO SCH ×2 (09:19→22:00)
[2022-05-24] MEDS: DOCUSATE SODIUM 250MG CAPSULE PO SCH (09:19)
[2022-05-24] MEDS: FAMOTIDINE 20MG TABLET PO SCH (09:20)
[2022-05-24] MEDS ORDERED: KCL 20MEQ/100ML PREMIX 100 ML IV NR (10:00)
[2022-05-24] MEDS: ANASTROZOLE 1 MG TABLET PO SCH (11:56)
[2022-05-24 12:00] VITALS: BP 122/57
[2022-05-24] MEDS: INSULIN GLARGINE 100 UNITS/ML SUBCUT SCH ×2 (12:14→22:05)
[2022-05-24 16:00] VITALS: BP 137/47
[2022-05-24] MEDS ORDERED: LEVOFLOXACIN 250MG TABLET PO SCH (16:00)
[2022-05-24] MEDS: ACETAMINOPHEN 325MG TABLET PO PRN ×2 (17:06→20:17)
[2022-05-24] MEDS: ENOXAPARIN 40MG/0.4ML SYR SUBCUT SCH (17:37)
[2022-05-24] MEDS: CYANOCOBALAMIN 1000MCG/ML VIAL IM SCH (18:21)
[2022-05-24 20:00] VITALS: BP 102/51
[2022-05-25] VITALS: BP 115/52
[2022-05-25 04:00] VITALS: BP 112/57
[2022-05-25] MEDS: BLOOD SUGAR DIAGNOSTIC STRIP TEST SCH ×4 (07:20→21:00)
[2022-05-25 07:40] LABS: BASOPHILS % 0.9 % (0.0-2.0); EOSINOPHILS % 2.3 % (0.0-5.0); HEMATOCRIT. 29.3 % (36.0-48.0); HEMOGLOBIN. 9.5 g/dL (12.0-16.0); LYMPHOCYTES % 24.4 % (20.0-50.0); MEAN CORPUSCULAR HEMOGLOBIN 28.5 pg (28.0-32.0); MEAN CORPUSCULAR VOLUME 87.5 fL (81.0-99.0); MEAN PLATELET VOLUME 8.7 fl (7.4-10.4); MONOCYTES % 8.1 % (2.0-8.0); NEUTROPHILS % 64.3 % (40.0-76.0); PLATELET 329 x1000/uL (130-400); RED BLOOD CELL COUNT 3.35 mill/uL (4.2-5.4); RED CELL DISTRIBUTION WIDTH 14.8 % (11.6-14.6)
[2022-05-25] MEDS: INSULIN LISPRO 100 UNITS/ML SUBCUT SCH ×4 (07:50→23:04)
[2022-05-25 08:00] VITALS: BP 133/67
[2022-05-25 08:09] LABS: CHLORIDE 105 mEq/L (98-107)
[2022-05-25] MEDS: POLYETHYLENE GLYCOL 3350 (17GM) 1 DOSE PACK PO SCH (09:00)
[2022-05-25] MEDS: DOCUSATE SODIUM 250MG CAPSULE PO SCH (09:23)
[2022-05-25] MEDS: CYANOCOBALAMIN 1000MCG/ML VIAL IM SCH (09:24)
[2022-05-25] MEDS: ANASTROZOLE 1 MG TABLET PO SCH (09:24)
[2022-05-25] MEDS: GUAIFENESIN 600MG ER TABLET PO SCH ×2 (09:24→21:56)
[2022-05-25] MEDS: FAMOTIDINE 20MG TABLET PO SCH (09:24)
[2022-05-25] MEDS: ACETAMINOPHEN 325MG TABLET PO PRN ×3 (09:25→23:08)
[2022-05-25] MEDS: INSULIN GLARGINE 100 UNITS/ML SUBCUT SCH ×2 (11:14→23:03)
[2022-05-25 11:54] VITALS: BP 119/56
[2022-05-25 15:47] VITALS: BP 111/44
[2022-05-25] MEDS: ENOXAPARIN 40MG/0.4ML SYR SUBCUT SCH (18:32)
[2022-05-25 20:00] VITALS: BP 111/55
[2022-05-26] VITALS: BP 140/74
[2022-05-26 04:00] VITALS: BP 127/82
[2022-05-26] MEDS: INSULIN LISPRO 100 UNITS/ML SUBCUT SCH ×4 (07:50→22:08)
[2022-05-26] MEDS: BLOOD SUGAR DIAGNOSTIC STRIP TEST SCH ×4 (07:51→21:46)
[2022-05-26 08:00] VITALS: BP 137/61
[2022-05-26] MEDS: DOCUSATE SODIUM 250MG CAPSULE PO SCH (08:18)
[2022-05-26] MEDS: ACETAMINOPHEN 325MG TABLET PO PRN ×3 (08:18→22:35)
[2022-05-26] MEDS: FUROSEMIDE 40MG TABLET PO SCH (08:18)
[2022-05-26] MEDS: CYANOCOBALAMIN 1000MCG/ML VIAL IM SCH (08:18)
[2022-05-26] MEDS: GUAIFENESIN 600MG ER TABLET PO SCH ×2 (08:18→21:44)
[2022-05-26] MEDS: FAMOTIDINE 20MG TABLET PO SCH (08:18)
[2022-05-26] MEDS: ANASTROZOLE 1 MG TABLET PO SCH (08:21)
[2022-05-26] MEDS: POLYETHYLENE GLYCOL 3350 (17GM) 1 DOSE PACK PO SCH (08:21)
[2022-05-26] MEDS: INSULIN GLARGINE 100 UNITS/ML SUBCUT SCH ×2 (11:33→22:09)
[2022-05-26 12:00] VITALS: BP 136/67
[2022-05-26 16:00] VITALS: BP 121/67
[2022-05-26] MEDS: ENOXAPARIN 40MG/0.4ML SYR SUBCUT SCH (18:10)
[2022-05-26 20:00] VITALS: BP 120/55
[2022-05-27] VITALS: BP 118/57
[2022-05-27 04:00] VITALS: BP 122/66
[2022-05-27] MEDS: BLOOD SUGAR DIAGNOSTIC STRIP TEST SCH ×2 (07:20→13:07)
[2022-05-27] MEDS: INSULIN LISPRO 100 UNITS/ML SUBCUT SCH ×2 (07:50→13:05)
[2022-05-27 08:00] VITALS: BP 122/53
[2022-05-27] MEDS: DOCUSATE SODIUM 250MG CAPSULE PO SCH (08:33)
[2022-05-27] MEDS: FUROSEMIDE 40MG TABLET PO SCH (08:33)
[2022-05-27] MEDS: FAMOTIDINE 20MG TABLET PO SCH (08:33)
[2022-05-27] MEDS: CYANOCOBALAMIN 1000MCG/ML VIAL IM SCH (08:33)
[2022-05-27] MEDS: ANASTROZOLE 1 MG TABLET PO SCH (08:33)
[2022-05-27] MEDS: GUAIFENESIN 600MG ER TABLET PO SCH (08:33)
[2022-05-27] MEDS: POLYETHYLENE GLYCOL 3350 (17GM) 1 DOSE PACK PO SCH (08:33)
[2022-05-27] MEDS: INSULIN GLARGINE 100 UNITS/ML SUBCUT SCH (10:30)
[2022-05-27 12:00] VITALS: BP 138/75
[2022-05-27 15:40] VITALS: BP 138/75
[2022-05-27 16:00] VITALS: BP 117/72
== END 2022-05-27 16:17 | DRG 313 ==
LOC: ER 14:49 → MICUSO 18:52 → EDBEDREQ 19:00 → EDBEDREQTM 19:00 → 7WST 23:05 → 6EST 05-15 09:20 → 7WST 05-15 18:45 → 6EST 05-20 22:42
PROVIDERS: ADMIT Internal Medicine; ATTEND Internal Medicine
PROC: 0QSG06Z Reposition Right Tibia with Intramedullary Internal Fixation Device, Open Approach (ICD-10-PCS; principal; 2022-05-13)
PROC: 02HV33Z Insertion of Infusion Device into Superior Vena Cava, Percutaneous Approach (ICD-10-PCS; 2022-05-22)
PROC: B518ZZA Fluoroscopy of Superior Vena Cava, Guidance (ICD-10-PCS; 2022-05-22)
PROC: B548ZZA Ultrasonography of Superior Vena Cava, Guidance (ICD-10-PCS; 2022-05-22)
DX: S82.201A Unspecified fracture of shaft of right tibia, initial encounter for closed fracture (principal); J96.01 Acute respiratory failure with hypoxia; I50.33 Acute on chronic diastolic (congestive) heart failure; N39.0 Urinary tract infection, site not specified; I67.82 Cerebral ischemia; E87.3 Alkalosis; E11.65 Type 2 diabetes mellitus with hyperglycemia; B96.20 Unspecified Escherichia coli [E. coli] as the cause of diseases classified elsewhere; E66.9 Obesity, unspecified; D50.9 Iron deficiency anemia, unspecified; I11.0 Hypertensive heart disease with heart failure; Z68.31 Body mass index [BMI] 31.0-31.9, adult; B96.89 Other specified bacterial agents as the cause of diseases classified elsewhere; E78.00 Pure hypercholesterolemia, unspecified; Z20.822 Contact with and (suspected) exposure to COVID-19; G89.29 Other chronic pain; J98.11 Atelectasis; Z16.12 Extended spectrum beta lactamase (ESBL) resistance; N63.10 Unspecified lump in the right breast, unspecified quadrant; E53.8 Deficiency of other specified B group vitamins; F41.9 Anxiety disorder, unspecified; Z79.899 Other long term (current) drug therapy; Z79.84 Long term (current) use of oral hypoglycemic drugs; Z86.73 Personal history of transient ischemic attack (TIA), and cerebral infarction without residual deficits; W19.XXXA Unspecified fall, initial encounter; Y93.89 Activity, other specified; Y92.89 Other specified places as the place of occurrence of the external cause; Y99.8 Other external cause status
CPT/HCPCS: 36415; 36573; 36600; 70551; 71045; 71275; 73562; 73590; 73610; 76000; 80048; 80053; 80061; 81003; 82140; 82270; 82375; 82607; 82728; 82746; 82805; 82962; 83036; 83540; 83550; 83880; 84145; 84484; 85025; 85044; 85379; 86850; 86900; 87077; 87186; 87426; 92610; 93005; 93970; 94640; 97110; 97162; 97166; 97530; 99285; C1725; C1769; C9113; J0690; J0696; J1100; J1170; J1650; J1815; J1885; J1940; J1956; J2060; J2250; J2270; J2405; J2704; J2765; J3010; J3370; J3420; J3480; J3490; J7060; L1830; Q9967; C1713

== ENCOUNTER 2022-05-27 21:33 | Emergency (ER) | payer MEDICAID ==
[~2022-05-27] VITALS: Ht 152.4 cm; Wt 84.0 kg
[2022-05-28] MEDS ORDERED: MORPHINE SULFATE 2 MG/ML CPJ (NOT FOR IM USE) IV ONE (03:30)
[2022-05-28 08:00] VITALS: BP 134/50
== END 2022-05-28 08:40 | disposition home or self-care (01) ==
LOC: ER 21:33
DX: M79.601 Pain in right arm (principal); E11.9 Type 2 diabetes mellitus without complications; I10 Essential (primary) hypertension; E78.00 Pure hypercholesterolemia, unspecified; Z85.3 Personal history of malignant neoplasm of breast; Z87.81 Personal history of (healed) traumatic fracture; Z98.890 Other specified postprocedural states; Z79.84 Long term (current) use of oral hypoglycemic drugs
CPT/HCPCS: 93005; 93971; 96374; 99285; J2270; Z7610

== ENCOUNTER 2022-06-22 10:46 | Emergency (ER) | payer MEDICAID ==
[~2022-06-22] VITALS: Ht 157.5 cm; Wt 90.0 kg
[2022-06-22 10:53] VITALS: BP 138/69
[2022-06-22 14:42] LABS: BASOPHILS % 0.4 % (0.0-2.0); EOSINOPHILS % 1.6 % (0.0-5.0); HEMATOCRIT. 35.6 % (36.0-48.0); HEMOGLOBIN. 11.6 g/dL (12.0-16.0); LYMPHOCYTES % 24.6 % (20.0-50.0); MEAN CORPUSCULAR VOLUME 88.8 fL (81.0-99.0); MEAN PLATELET VOLUME 8.1 fl (7.4-10.4); MONOCYTES % 6.2 % (2.0-8.0); NEUTROPHILS % 67.2 % (40.0-76.0); PLATELET 312 x1000/uL (130-400); RED CELL DISTRIBUTION WIDTH 16.6 % (11.6-14.6)
[2022-06-22 14:53] LABS: CHLORIDE 103 mEq/L (98-107)
[2022-06-22] MEDS ORDERED: SODIUM CHLORIDE 0.9% 1,000 ML IV ONE (16:15)
== END 2022-06-22 18:42 | disposition home or self-care (01) ==
LOC: ER 10:46
DX: E87.20 Acidosis, unspecified (principal); E11.649 Type 2 diabetes mellitus with hypoglycemia without coma; E78.00 Pure hypercholesterolemia, unspecified; I10 Essential (primary) hypertension; Z85.9 Personal history of malignant neoplasm, unspecified; Z79.899 Other long term (current) drug therapy
CPT/HCPCS: 36415; 80053; 82962; 83605; 84145; 85025; 93005; 93971; 96360; 99285